=== PATIENT | female | born 1990 | race Caucasian/White ===

== ENCOUNTER 2024-03-22 16:47 | Emergency (ER) | payer OTHER, SELFPAY ==
[2024-03-22 17:05] VITALS: BP 127/84; PULSE 76; RESP 20; TEMP 36.9; O2SAT 99; BMI 35.9
--- NOTE | 2024-03-22 17:26 | XR_ITS ---
PROCEDURE INFORMATION: Exam: XR Abdomen Exam date and time: 03/22/2024 5:45 PM Age: 34 years old Clinical indication: Abdominal pain; Additional info: Constipation/abd pain/bloating TECHNIQUE: Imaging protocol: Radiologic exam of the abdomen. Views: Frontal supine view of the abdomen. 1 View. COMPARISON: No relevant prior studies available. FINDINGS: Gastrointestinal tract: Moderate stool burden of the ascending colon. Organs: An intrauterine device is present. Bones/joints: Unremarkable. IMPRESSION: Moderate stool burden of the ascending colon.
--- NOTE | 2024-03-22 17:31 | EXP.UTC ---
Discharge Plan Disposition Patient Disposition: Home, Self-Care Condition: Good Prescriptions Prescriptions: No Action lorazepam 0.5 mg Tablet 0.5 mg PO DAILY PRN (Reason: Anxiety) escitalopram oxalate 10 mg Tablet 10 mg PO DAILY Referrals Follow up/Referrals: Provider,Referral, [Primary Care Provider] - See instructions Activity Restrictions/Add. Instructions Additional Instructions/Restrictions: Take 2 Ducolax laxatives. Later take one Small bottle of Miralax. Do 1 capfull of Miralax in 8 ounces of fluid every 15 minutes until completed. Keep follow up with appointment with primary care provider. Clinical Impressions Clinical Impression: Constipation by delayed colonic transit Stand Alone Forms Stand Alone Forms: Work/School Release Instructions Patient Instructions: DI for Constipation Discharge ED Provider: Bella Bello [facility] General Stated complaint: constipation Mode of Arrival: Ambulatory Source of Information: Patient Limitations: No Limitations Time Seen by Provider: 03/22/24 17:30 Description of Symptoms (Recalled from Triage Doc. by RN): PATIENT C/O CONSTIPATION X 2-3 WEEKS. SHE STATES SHE HAS NOT HAD A BOWEL MOVEMENT ON HER OWN WITHOUT THE HELP OF A SUPPOSITORY FOR APPROX 3 WEEKS, HER LAST ONE BEING LAST NIGHT AND SMALL. SHE STATES SHE HAS ALSO BEGAN HAVING PAIN TO LEFT-MID ABDOMEN, BLOATING AND NAUSEA HEENT Symptoms (Recalled from RN notes): No Resp Symptoms (Recalled from RN notes): No Skin Symptoms (Recalled from RN notes): No MS Symptoms (Recalled from RN notes): No Functional Status (Recalled from RN notes): WNL History of Present Illness Provider Complaint: Pt is concerned that she may have a blockage. She reports that she has only had a very small bowel movement over the past 2-3 weeks after using a suppository. She reports that she takes Miralax every day. She states that she had a very small bowel movement yesterday. She is worried that she may have a blockage. Related Data Home Medications Medication Instructions Recorded Confirmed escitalopram oxalate 10 mg tablet 10 mg PO DAILY 03/22/24 03/22/24 lorazepam 0.5 mg tablet 0.5 mg PO DAILY PRN Anxiety 03/22/24 03/22/24 Allergies Allergy/AdvReac Type Severity Reaction Status Date / Time No Known Allergies Allergy Verified 03/22/24 17:23 Worker's Comp Is this a Worker's Comp case?: No PFSH PFSH Disclaimer: The information contained in this section may have been updated after the patient was seen, as this information can be updated by other users. Medical History (Updated 03/22/24 @ 18:26 by Bella Bello APRN) Depression Anxiety Surgical History (Updated 03/22/24 @ 17:24 by Yanelis Quinn RN) History of section Social History Smoking Status: Current every day smoker alcohol intake: current current occupational status: employed Travel in the last 8 weeks: None ROS Obtained: Yes All systems reviewed & no additional complaints except as documented Constitutional Constitutional: Reports system reviewed and no additional complaints, except as documented Eyes Eyes: Reports system reviewed and no additional complaints, except as documented ENT Ears, Nose, Mouth, and Throat: Reports system reviewed and no additional complaints, except as documented Cardiovascular Cardiovascular: Reports system reviewed and no additional complaints, except as documented Respiratory Respiratory: Reports system reviewed and no additional complaints, except as documented Gastrointestinal Gastrointestingal: Reports system reviewed and no additional complaints, except as documented, constipation and cramping Genitourinary Female Genitourinary: Reports system reviewed and no additional complaints, except as documented Musculoskeletal Musculoskeletal: Reports system reviewed and no additional complaints, except as documented Integumentary/Breasts Skin/Breast: Reports system reviewed and no additional complaints, except as documented Neurologic Neurologic: Reports system reviewed and no additional complaints, except as documented Endocrine Endocrine: Reports system reviewed and no additional complaints, except as documented Hematologic/Lymphatic Henatologic/Lymphatic: Reports system reviewed and no additional complaints, except as documented Allergic/Immunologic Allergic/Immunologic: Reports system reviewed and no additional complaints, except as documented Physical Exam General General appearance: alert and in no apparent distress Head Head exam: atraumatic and normocephalic Eye Eye exam: Present normal appearance ENT ENT exam: Present normal exam Neck Neck exam: Present normal inspection Chest Chest inspection: Present normal inspection and symmetric chest wall rise Respiratory Respiratory exam: Present normal lung sounds bilaterally Cardiovascular Cardiovascular exam: Present regular rate, normal rhythm and normal heart sounds Abdominal Exam Abdominal exam: Present soft and hypoactive bowel sounds Abdominal tenderness: Present diffuse and mild Extremities Exam Extremities exam: Present normal inspection Back Exam Back exam: Present normal inspection Neurological Exam Neurological exam: Present alert and oriented X3 Psychiatric Psychiatric exam: Present normal affect and normal mood Skin Skin exam: Present warm, dry and intact Lymphatic Lymphatic Findings: no adenopathy Medical Decision Making [place] Inquiry Pt receiving controlled substance: No [place] was queried for this patient: No Vital Signs: 03/22/24 17:05 Temperature 98.5 F Temperature Source Oral Pulse Rate [Left Brachial] 76 Respiratory Rate 20 Blood Pressure [Left Arm] 127/84 Blood Pressure Mean [Left Arm] 98 Blood Pressure Source [Left Arm] Automatic Cuff Blood Pressure Position [Left Arm] Sitting 02 Sat by Pulse Oximetry 99 Oxygen Delivery Method Room Air Orders (Tests/Meds): ORDERS Category Date Time Status KUB (single view) [XR KUB] Stat Exams 03/22/24 17:26 Ordered Radiology Data #1: Image(s): Abdomen Image Reviewed: Yes I reviewed the patient's radiology results and Yes I have reviewed radiologist's interpretation FINDINGS: Gastrointestinal tract: Moderate stool burden of the ascending colon. Organs: An intrauterine device is present. Bones/joints: Unremarkable. IMPRESSION: Moderate stool burden of the ascending colon.
[2024-03-22 17:39] LABS: UTC Pregnancy Test, Urine Negative (Negative)
[2024-03-22 18:28] VITALS: BP 127/84; PULSE 76; RESP 20; TEMP 36.9; O2SAT 99
== END 2024-03-22 18:32 | disposition home or self-care (01) ==
PROVIDERS: Emergency Provider Nurse Practitioner Family
DX: K59.01 Slow transit constipation (principal)
CPT/HCPCS: 74018; 81025; 99204; 99212; G0463